=== PATIENT | female | born 1965 | race Caucasian/White ===

== ENCOUNTER 2018-01-25 23:52 | Inpatient (IN) | payer MEDICARE ==
[~2018-01-25] VITALS: Ht 149.9 cm; Wt 64.1 kg
--- NOTE | ~2018-01-25 | HEMODYNAMI ---
PATIENT:SUJIT GAY MEDICAL RECORD: [id number] : 63 LOCATION:[facility] ADMISSION DATE: 01/25/18 Generatedon:01/26/20181:36 Patient name: SUJIT GAY Patient #: [id number] SSN: : 1965 Date of study: 01/26/2018 Page: Of Hemodynamic Procedure Report Patient Data Patient Demographics Procedure consent was obtained First Name: SUJIT Gender: Female Last Name: DEIDRA : 1965 [facility] Initial: C Age: 52 year(s) Patient #: [id number] Race: Unknown Additional ID: [id number] Contact details [address]: [address] [place] [address] State: [place] City: [place] Zip code: [address] Past Medical History Allergies Allergen Reaction Date Comments Reported Other allergy 01/26/2018 DEET, NOVACAINE, DEMEROL, PCN Admission Admission Data Admission Date: 01/25/2018 Admission Time: 23:52 Procedure Procedure Types Cath Procedure Diagnostic Procedure C C w/Coronaries PCI Procedure AMI/SVG/INFORMATION CODER PTCA or Stent AMI-BMS/MATEO Initial Procedure Description Procedure Date Procedure Date: 01/26/2018 Procedure Start Time: 0:55 Procedure End Time: 1:35 Procedure Staff Name Function Inder Sparks RT Monitor Irlanda Petty RT Scrub Romi Otoole RN Nurse Jason Bowser MD Performing Physician Procedure Data Cath Procedure Fluoroscopy Diagnostic fluoroscopy Total fluoroscopy Time: 8.1 time: 8.1 min min Diagnostic fluoroscopy Total fluoroscopy dose: dose: 1107 mGy 1107 mGy Contrast Material Contrast Material Type Amount (ml) Isovue 300 118 Entry Location Entry Primary Successful Side Size Upsize Upsize Entry Closure Succes sful Closure Location (Fr) 1 (Fr) 2 (Fr) Remarks Device Remarks Femoral Right 6 Fr Exoseal artery Short Estimated blood loss: 10 ml Diagnostic catheters Device Type Used For End Catheter Placement MULTIPACK 3DRC 5Fr Procedure catheter MULTIPACK Pigtail 5 Fr Procedure catheter Procedure Complications No complications Procedure Medications Medication Administration Route Dosage Oxygen NRB 12 l/min Lidocaine 2% added to field 20 Heparin Flush Bag added to field 2 bags (1000units/500ml NS) 0.9% NaCl I.V. 100 ml/hr Versed I.V. 1 mg Heparin Bolus I.V. 5000 units Versed I.V. 1 mg Nitroglycerin IC/IA I.C. 100 mcg Hemodynamics Rest Heart Rate: 79 (bpm) Pressure Samples Time Site Value (mmHg) Purpose Heart Use Rate(bpm) 0:57 AO 195/108(146) Snapshot 82 1:05 AO 154/116(134) Snapshot 87 1:18 AO 173/106(138) Snapshot 83 1:21 LV 171/5,35 Snapshot 94 1:22 AO 175/100(136) Pullback 91 1:22 LV 179/5,33 Pullback 91 Gradients Valve Time Site 1 Site 2 Mean SEP/DFP Peak To Heart Use (mmHg) (sec/min) Peak Rate (mmHg) (bpm) Aortic 1:22 LV AO 9 4 4 91 179/5,33 175/100(136) Calculations Valve P-P Mean Valve Index Valve Source Name Gradient Area Flow (cm2) Aortic 4 9 4 9 Snapshots Pre Cath Intra NCS Post Cath Vital Signs Time Heart Resp SPO2 NIBP (mmHg) Rhythm Pain Sedation Rate (ipm) (%) Status Level (bpm) 0:52:25 72 17 98 Measuring NSR 0 (11) 10(A) , No pain 0:54:28 85 17 99 Time NSR 0 (11) 10(A) Exceeded , No pain 0:57:22 83 19 99 173/91(135) NSR 0 (11) 10(A) , No pain 1:02:07 88 13 97 173/106(132) NSR 0 (11) 10(A) , No pain 1:06:50 89 23 95 162/96(138) NSR 0 (11) 9(A) , No pain 1:11:28 84 22 94 103/62(87) NSR 0 (11) 9(A) , No pain 1:16:31 85 20 93 136/99(117) NSR 0 (11) 9(A) , No pain 1:21:47 94 20 95 134/96(126) NSR 0 (11) 10(A) , No pain 1:27:06 98 22 96 167/107(140) NSR 0 (11) 10(A) , No pain 1:31:53 101 22 96 177/104(129) NSR 0 (11) 10(A) , No pain Medications Time Medication Route Dose Verified Delivered Reason Notes Effectiveness by by 0:52:21 Oxygen NRB 12 Coy Buffie Per physician l/min Ronald Otoole RN, MD 0:52:28 Lidocaine 2% added 20ml Coy Coy for local to vial Ronald Cardenas MD anesthetic field MARTI 0:52:34 Heparin Flush added 2 Coy Coy used for Bag to bags Ronald Cardenas MD procedure (1000units/500ml field MARTI NS) 0:52:49 0.9% NaCl I.V. 100 Coy Buffie Per physician ml/hr Ronald Otoloe RN, MD 0:52:59 Versed I.V. 1 mg Coy Buffie for sedation Ronald Otoole RN, MD 0:59:03 Heparin Bolus I.V. 5000 Coy Buffie for verifie d units Ronald Otoole RN anticoagulation with dr MD bowser 1:04:57 Versed I.V. 1 mg Coy Buffie for sedation Ronald Otoole RN, MD 1:10:57 Nitroglycerin I.C. 100 Jason Buffie for IC/IA mcg Niels Otoole RN vasodilation Procedure Log Time Note 0:33:01 Inder Sparks RT(R) sent for patient. Start room use. 0:33:02 Time tracking: Call back (After hours or weekends) 0:33:06 Plan of Care:Hemodynamics will remain stable., Cardiac rhythm will remain stable., Comfort level will be maintained., Respiratory function will remain adequate., Patient/ family verbilizes understanding of procedure., Procedure tolerated without complication., Recovers from procedure without complications.. 0:33:11 H&P Date Dictated: 01/26/2018 ER History on chart.. 0:43:32 Patient allergic to Other allergyDEET, NOVACAINE, DEMEROL, PCN 0:43:38 Patient received from ED to CCL 1 Alert and oriented. Tansferred to table in Supine position. 0:43:39 Warm blankets applied, and efrain hugger turned on for patient comfort. 0:43:40 Correct patient and procedure confirmed by team. 0:43:41 Signed procedure consent form obtained from patient. 0:43:42 ECG and BP/O2 sat monitors applied to patient. 0:51:16 Vital chart was started 0:51:21 Baseline sample Acquired. 0:51:25 Rhythm: w/ ST elevation 0:51:26 Full Disclosure recording started 0:51:27 Pre-procedure instructions explained to patient. 0:51:27 Pre-op teaching completed and patient verbalized understanding. 0:51:28 Family in waiting room. 0:51:31 Patient NPO since Midnight. 0:51:33 Is the patient allergic to Iodine/contrast media? No. 0:51:35 Is patient on blood thinner?Yes 0:51:41 ACC The patient was administered the following blood thiners within the last 24 hours: ACCPlavix 0:51:56 Patient diabetic? No. 0:51:59 Previous problem with sedation/anesthesia? No ? 0:52:01 Snore? Yes 0:52:02 Sleep apnea? No 0:52:03 Deviated septum? No 0:52:04 Opens mouth fully? Yes 0:52:05 Sticks out tongue? Yes 0:52:07 Airway obstruction? No ? 0:52:21 Oxygen 12 l/min NRB was administered by Romi Otoole RN; Per physician; 0:52:24 Dentures? No ? 0:52:27 Pre procedure: right dorsailis pedis pulse 1+ Palpable, but thready & weak; easily obliterated 0:52:28 Lidocaine 2% 20ml vial added to field was administered by Coy Cardenas MD; for local anesthetic; 0:52:33 Patient pain scale 8/10 ?. 0:52:34 Heparin Flush Bag (1000units/500ml NS) 2 bags added to field was administered by Coy Cardenas MD; used for procedure; 0:52:38 IV patent on arrival in left forearm with 0.9% NaCl at O. 0:52:40 Lab results completed and on chart. 0:52:43 Right groin area was prepped with chlora-prep and draped in sterile fashion 0:52:44 Alarms reviewed by R. N. 0:52:44 Sharps counted by scrub and verified by R.N. 0:52:46 --------ALL STOP TIME OUT------ 0:52:46 Final Timeout: patient, procedure, and site verified with staff and physician. All members of the team are in agreement. 0:52:49 0.9% NaCl 100 ml/hr I.V. was administered by Romi Otoole RN; Per physician; 0:52:49 Right groin site verified by team. 0:52:59 Versed 1 mg I.V. was administered by Romi Otoole RN; for sedation; 0:53:19 Physical assessment completed. ASA score P 3 - A patient with severe systemic disease as per Jason Bowser MD. 0:53:22 Sedation plan: IV Moderate Sedation Medication:Versed, Fentanyl 0:55:23 Procedure started. 0:55:26 Local anesthetic to right femoral artery with Lidocaine 2% by Jason Bowser MD.INITIAL ACCESS ONLY 0:55:30 Use device set Femoral Dx 0:55:31 Tegaderm 4 x 4 (1626W) opened to sterile field. 0:55:32 PERCUTANEOUS ENTRY 19GA needle opened to sterile field. 0:55:33 ACIST Manifold (83519) opened to sterile field. 0:55:34 ACIST Hand Control (72693) opened to sterile field. 0:55:35 ACIST Syringe (10037) opened to sterile field. 0:55:35 Bag Decanter (2002S) opened to sterile field. 0:55:36 Medline Cath Pack ([id number]) opened to sterile field. 0:55:36 DIAGNOSTIC WIRE .035 260cm J wire (032237) opened to sterile field. 0:55:37 DIAGNOSTIC Multipack 5Fr catheter set (QD9020) opened to sterile field. 0:55:45 Use device set BOWSER PCI 0:55:47 SHEATH Prelude 6Fr 0.035 (IND-4R-10-035) opened to sterile field. 0:55:49 GUIDE 6FR XBLAD 3.5 catheter ([id number]) opened to sterile field. 0:56:01 BMW 300cm Huntington 2 J wire ([id number]) opened to sterile field. 0:56:02 INFLATOR Merit BasixCompak (XB0858) opened to sterile field. 0:56:03 TUBING High Pressure Extension Tubing (Niels) (YV5353F) opened to sterile field. 0:57:01 A 6 Fr Short sheath was inserted into the Right Femoral artery 0:57:14 6 Fr XBLAD 3.5 guide catheter was inserted over the wire 0:58:10 LCA angiography performed. 0:59:03 Heparin Bolus 5000 units I.V. was administered by Romi Otoole RN; for anticoagulation; verified with dr bowser 0:59:50 BMW wire advanced. 1:00:33 Wire advanced across lesion. 1:01:47 Inflate balloon Inflation number: 1 A EMERGE OTW 2.5 x 15 balloon ([id number]) was prepped and advanced across the Mid LAD, then inflated to 10 ROMEO for 0:10 (min:sec). 1:04:24 Balloon removed over the wire. 1:04:57 Versed 1 mg I.V. was administered by Romi Otoole RN; for sedation; 1:06:59 Place stent Inflation Number: 2 A INTEGRITY OTW 3.0 X 30 stent ([id number]) was prepped and advanced across the Mid LAD. The stent was deployed at 13 ROMEO for 0:10 (min:sec). 1:10:57 Nitroglycerin IC/IA 100 mcg I.C. was administered by Romi Otoole RN; for vasodilation; 1:13:31 Stent catheter was removed intact over wire. 1:16:47 Place stent Inflation Number: 3 A INTEGRITY OTW 2.75 X 8 stent ([id number]) was prepped and advanced across the Mid LAD. The stent was deployed at 12 ROMEO for 0:10 (min:sec). 1:17:07 Stent catheter was removed intact over wire. 1:17:08 Wire removed. 1:17:09 Guide catheter removed. 1:17:22 A MULTIPACK 3DRC 5Fr catheter was advanced over the wire and used for Procedure. 1:19:36 RCA angiography performed. 1:19:50 Catheter exchanged over wire. 1:19:57 A MULTIPACK Pigtail 5 Fr catheter was advanced over the wire and used for Procedure. 1:21:46 LV angiography performed. 1:21:47 LV gram done using ALVARADO 1:21:53 EF : 30 % 1:22:18 LV hemodynamics recorded. 1:22:21 Injector settings: Ml/sec: 10, Volume: 20, 1:22:28 Catheter removed. 1:22:43 EXOSEAL 6Fr (EX600) opened to sterile field. 1:22:59 Sheath removed intact; hemostasis achieved with Exoseal to the Right Femoral artery. 1:23:02 Procedure ended.(Physican Out) 1:23:14 Fluoroscopy time 08.10 minutes. 1:23:18 Fluoroscopy dose: 1107 mGy 1:23:18 Flurop Dose total: 1107 1:23:22 Contrast amount:Isovue 300 118ml. 1:23:24 Sharps counted by scrub and verified by R.N. 1:23:25 Insertion/operative site no bleeding no hematoma. 1:23:28 Post-op/insertion site Right Femoral artery dressed using a 4 x 4 and Tegaderm. 1:23:29 Post Procedure Pulses reassessed and unchanged 1:23:38 Post-procedure physical assessment completed. ASA score P 3 - A patient with severe systemic disease as per Jason Bowser MD. 1:23:41 Post procedure rhythm: sinus rhythm 1:23:51 Estimated blood loss: 10 ml 1:24:41 Post procedure instruction explained to patient.Patient verbalizes understanding. 1:24:42 Patient needs reinforcement of post procedure teaching. 1:25:20 Procedure type changed to Cath procedure, Diagnostic procedure, LHC, LHC w/Coronaries, PCI procedure, AMI/SVG/INFORMATION CODER PTCA or Stent, AMI-BMS/MATEO Initial 1:25:22 Procedure and supply charges have been captured, reviewed, submitted and are correct. 1:25:25 Procedure Complication : No complications 1:33:07 Pt began to develop a right groin hematoma. Femstop applied at 200. 1:33:13 FEMSTOP Gold (P52803) opened to sterile field. 1:35:45 Vital chart was stopped 1:35:46 See physician's report for complete and final results. 1:35:49 Report given to CVICU. 1:35:53 Patient transfered to CVICU with Bed. 1:35:55 Procedure ended. 1:35:55 Full Disclosure recording stopped 1:36:07 End room use (Document Last) Intervention Summary Intervention Notes Time ActionType Lesion and Equipment Action# Pressure Duration Attributes Used 1:01:47 Inflate Mid LAD EMERGE OTW 1 10 00:10 balloon 2.5 x 15 balloon ([id number]) 1:06:59 Place stent Mid LAD INTEGRITY 2 13 00:10 OTW 3.0 X 30 stent ([id number]) 1:16:47 Place stent Mid LAD INTEGRITY 3 12 00:10 OTW 2.75 X 8 stent ([id number]) Device Usage Item Name Manufacture Quantity Catalog Number Hospital Part Current Minimal Lot# / Charge Number Stock Stock Serial# Code Tegaderm 4 x 4 3M 1 [id number] [id number] [id number] 115357 5 (1626W) PERCUTANEOUS Cook Medical 1 [id number] 555177 415537 5 ENTRY 19GA needle ACIST Manifold Acist 1 46393 241307 739246 853695 5 (93922) Medical Systems Inc ACIST Hand Acist 1 68488 335979 347864 191061 5 Control (95228) Medical Systems Anadys ACIST Syringe Acist 1 83542 461210 428125 663305 20 (82467) Medical Systems Inc Bag Decanter Microtek 1 2001S 694087 32334 434360 5 (2001S) Medical Inc. Medline Cath Cardinal 1 [id number] 663478 88572 716946 5 Pack Health (ECSA09062) DIAGNOSTIC WIRE St Talat 1 382370 511713 345114 121454 30 .035 260cm J wire (986265) DIAGNOSTIC Cardinal 1 PE4776 498934 95476 092642 30 Multipack 5Fr Health catheter set (VP0098) SHEATH Prelude Merit 1 JAL-5H-82-35 905988 3802619 678550 5 6Fr 0.035 Medical (IQT-3H-29-035) GUIDE 6FR XBLAD Cardinal 1 [id number] 428653 562370 423649 10 3.5 catheter Next audience (49013130) BMW 300cm Gordon 1 1231043E 719592 000429 882449 5 Huntington 2 J Vascular wire (7299081T) INFLATOR Merit Merit 1 AL2287 086942 010781 651716 15 BasixCompak Medical (SI2480) TUBING High Merit 1 DM6856J 169242 77308 933206 10 Pressure Medical Extension Tubing (Bowser) (NE1650S) EMERGE OTW 2.5 Converse 1 [id number] 314241 216351 852008 5 x 15 balloon Scientific ([id number]) INTEGRITY OTW Medtronic 1 [id number] 290227 841103 7 [id number] 3.0 X 30 stent ([id number]) INTEGRITY OTW Medtronic 1 [id number] 718784 454571 1 2.75 X 8 stent ([id number]) MULTIPACK 3DRC Cardinal 1 223661 5 5Fr catheter Health MULTIPACK Cardinal 1 364882 5 Pigtail 5 Fr Health catheter EXOSEAL 6Fr Cardinal 1 EX600 482335 938670 683107 10 (EX600) Health FEMSTOP Gold St Talat 1 D21445 225397 117108 436812 5 (A85222) Signature Audit Julian Stage Time Signature Unsigned Intra-Procedure 01/26/2018 Inder Sparks 1:36:37 AM RT(R) Signatures Monitor : Inder Sparks RT Signature : Date : Time : [address] [address]
--- NOTE | ~2018-01-25 | EC ---
PATIENT:SUJIT GAY DATE OF SERVICE: 01/26/18 SEX: F MEDICAL RECORD: [id number] DATE OF : 63 LOCATION:[place] [address] AGE OF PATIENT: 52 ADMISSION DATE: 01/26/18 REFERRING PHYSICIAN: INTERPRETING PHYSICIAN: JULIA STARKS MD ECHOCARDIOGRAM REPORT ECHO CHARGES 4 ECHO COMPLETE Date: 01/26 CLINICAL DIAGNOSIS: ACUTE [place] ECHOCARDIOGRAPHIC MEASUREMENTS (adult normal given) AC root (d.<3.7cm) 2.5 cm LV Septum d (<1.2 cm> 0.9 cm Valve Excursion 1.2 cm LV Septum (systole) 1.0 cm Left Atria (s.<4.0cm> 2.8 cm LVPW d(<1.2cm) 0.9 cm RV (d.<2.3cm) 2.8 cm LVPW (sytole) 1.2 cm LV diastole(<5.6CM) 4.9 cm MV E-F(>70mm/sec) cm LV systole 3.6 cm LVOT Diameter 1.4 cm MV exc.(>10mm) 1.2 cm Est.ejection fraction (50-75%) % DOPPLER: LVIT cm/sec A 84.0 cm/sec E 56.0 cm/sec LA cm/sec RVSP 17 mmHg LVOT 125 cm/sec AOP1/2T m/s Asc. Ao 152 cm/sec RVOT cm/sec RA cm/sec PA cm/sec AV Gradient Peak 9.20 mmHg AV Mean 5.11 mmHg AV Area 1.2 cm MV Gradient Peak 4.37 mmHg MV Mean 1.73 mmHg MV Area cm COMMENTS: Hospice Clinical Marketer: Janis WALLACE Fuller Brush Man: 2 Dr. Bowser TAPE# PACS Pericardial Effusion N DATE OF SERVICE: 01/26/2018 PROCEDURE: Echocardiogram. FINDINGS: 1. Left ventricular chamber size is within normal limits. Left ventricular systolic function is preserved at 50%. There is apical and septal hypokinesis. 2. Left atrium is within normal limits at 2.8 cm. Right atrium and right ventricle chamber sizes are mildly dilated. 3. Valvular structures have normal structure and motion. ECHOCARDIOGRAM REPORT [id number] SUJIT GAY 4. Doppler interrogation reveals no significant valvular insufficiency or stenosis. 5. No evidence of pericardial effusion or left ventricular thrombus. TRANSINT:[id number] Voice Confirmation ID: [id number] DOCUMENT ID: [id number] JULIA STARKS MD at 2002 CC: [id number] DICTATION DATE: 01/26/18 1337 TUBE WORKER: 01/26/18 1357 ADM IN [facility] [address] [place] [address]
--- NOTE | ~2018-01-25 | DS ---
PATIENT:SUJIT GAY :63 MEDICAL RECORD: [id number] DISCHARGE SUMMARY ADMISSION DATE: 01/26/18 DISCHARGE DATE: 01/28/18 DISCHARGE DIAGNOSES: 1. Acute anterior myocardial infarction. 2. PTCA stent LAD. 3. Coronary artery disease. 4. Hypertension. 5. Hyperlipidemia. HOSPITAL COURSE: Mrs. Gay presents with acute anterior myocardial infarction, underwent successful PTCA stent of the LAD, was discharged home with the addition of aspirin, Plavix, Pravachol, Coreg, and lisinopril to her medical regimen. Follow up with [facility] in 1 month. TRANSINT:[id number] Voice Confirmation ID: [id number] DOCUMENT ID: [id number] JULIA STARKS MD at 1741 CC: [id number] DICTATION DATE: 01/28/18 1001 VP BUSINESS DEVELOPMENT: 01/28/18 1735 DIS IN 01/28/18 [place] [address] [place] [address]
[2018-01-25] MEDS ORDERED: ZESTRIL40 MG PO (23:57)
[2018-01-25] MEDS ORDERED: MOBIC7.5 MG PO (23:57)
[2018-01-25] MEDS ORDERED: PERCOCET 10/3251 TA1 PO (23:58)
[2018-01-25] MEDS ORDERED: TRAZODONE HCL50 MG PO (23:58)
[2018-01-26] VITALS (65 sets, daily range): BP systolic 90–168; BP diastolic 40–115; Ht 149.9 cm; Wt 64.1 kg
[2018-01-26 00:06] LABS: BASOPHILS 0.2 % (0-2); EOSINOPHILS 2.6 % (0-7); HEMATOCRIT 39.6 % (36.0-48.0); HEMOGLOBIN 13.7 g/dL (12-16); IMMATURE GRANULOCYTES 0.2 % (0-5); LYMPHOCYTES 47.6 % (15-50); MCHC 34.6 g/dL (31.0-37.0); MCV 83.9 fL (80.0-100.0); MEAN PLATELET VOLUME 10.4 fL (7.4-10.4); MONOCYTES 9.5 % (2-11); NEUTROPHILS 39.9 % (40-80); PLATELET COUNT 222 10x3/uL (130-400); RBC 4.72 10x6/uL (4.00-5.40); WBC 12.7 10x3/uL (4.8-10.8)
[2018-01-26 00:25] LABS: APTT 27.4 SECONDS (22.8-39.4); INR 0.96 (0.85-1.17); PROTIME 12.3 SECONDS (11.6-15.0)
[2018-01-26 00:37] LABS: ALBUMIN 3.8 g/dL (3.4-5.0); ALKALINE PHOSPHATASE 96 U/L (46-116); ALT (SGPT) 20 U/L (10-68); BILIRUBIN - TOTAL 0.17 mg/dL (0.2-1.3); CALC OSMOLALITY 283 mosm/kg (275-300); CALCIUM 9.1 mg/dL (8.5-10.1); CARBON DIOXIDE 20.7 mmol/L (21.0-32.0); CHLORIDE - SERUM 106 mmol/L (98-107); CREATININE - SERUM 0.8 mg/dL (0.6-1.3); POTASSIUM - SERUM 3.2 mmol/L (3.5-5.1); PROTEIN - SERUM 7.6 g/dL (6.4-8.2); SODIUM 141 mmol/L (136-145); UREA NITROGEN 14 mg/dL (7-18); eGFR NON AFRICAN AMERICAN 79 mL/min (90-120)
[2018-01-26 00:39] LABS: GLUCOSE 143 mg/dL (74-106)
[2018-01-26 00:54] LABS: CKMB 1.5 U/L (0.0-3.6); CREATINE KINASE 54 UL (21-215); PRO BNP 47 pg/mL (0-125); TROPONIN-I 0.144 ng/mL (0.000-0.060)
[2018-01-26 12:26] LABS: BASOPHILS 0.1 % (0-2); EOSINOPHILS 0.3 % (0-7); HEMATOCRIT 40.3 % (36.0-48.0); HEMOGLOBIN 13.5 g/dL (12-16); IMMATURE GRANULOCYTES 0.3 % (0-5); LYMPHOCYTES 12.3 % (15-50); MCH 28.9 pg (26.0-34.0); MCHC 33.5 g/dL (31.0-37.0); MCV 86.3 fL (80.0-100.0); MEAN PLATELET VOLUME 10.6 fL (7.4-10.4); MONOCYTES 6.9 % (2-11); NEUTROPHILS 80.1 % (40-80); PLATELET COUNT 219 10x3/uL (130-400); RBC 4.67 10x6/uL (4.00-5.40); RDW 13.4 % (11.5-14.5); WBC 17.7 10x3/uL (4.8-10.8)
[2018-01-26 13:39] LABS: CREATINE KINASE 4545 UL (21-215)
[2018-01-26 13:40] LABS: CKMB 799.9 U/L (0.0-3.6)
[2018-01-26 14:35] LABS: CREATININE - SERUM 0.8 mg/dL (0.6-1.3); GLUCOSE 105 mg/dL (74-106); UREA NITROGEN 13 mg/dL (7-18); eGFR NON AFRICAN AMERICAN 79 mL/min (90-120)
[2018-01-26 14:36] LABS: CALC OSMOLALITY 278 mosm/kg (275-300); CALCIUM 8.9 mg/dL (8.5-10.1); CARBON DIOXIDE 26.3 mmol/L (21.0-32.0); CHLORIDE - SERUM 107 mmol/L (98-107); CKMB 1095.6 U/L (0.0-3.6); CREATINE KINASE 5963 UL (21-215); POTASSIUM - SERUM 4.5 mmol/L (3.5-5.1); SODIUM 140 mmol/L (136-145)
[2018-01-26 19:18] LABS: CKMB 403.3 U/L (0.0-3.6); CREATINE KINASE 2947 UL (21-215)
[2018-01-26 19:19] LABS: TROPONIN-I 66.455 ng/mL (0.000-0.060)
[2018-01-27] VITALS (54 sets, daily range): BP systolic 88–168; BP diastolic 37–99
[2018-01-27 06:47] LABS: CALC OSMOLALITY 281 mosm/kg (275-300); CALCIUM 8.6 mg/dL (8.5-10.1); CARBON DIOXIDE 24.6 mmol/L (21.0-32.0); CHLORIDE - SERUM 106 mmol/L (98-107); CKMB 146.1 U/L (0.0-3.6); CREATININE - SERUM 0.7 mg/dL (0.6-1.3); GLUCOSE 120 mg/dL (74-106); POTASSIUM - SERUM 4.2 mmol/L (3.5-5.1); SODIUM 141 mmol/L (136-145); UREA NITROGEN 13 mg/dL (7-18); eGFR NON AFRICAN AMERICAN > 90 mL/min (90-120)
[2018-01-27 06:53] LABS: CREATINE KINASE 1279 UL (21-215); TROPONIN-I 44.125 ng/mL (0.000-0.060)
[2018-01-28] VITALS: BP 115/78
[2018-01-28 04:00] VITALS: BP 135/62
[2018-01-28 08:41] VITALS: BP 139/77
== END 2018-01-28 13:25 | disposition home or self-care (01) | DRG 249 ==
LOC: D.ER 23:52 → D.CVICU 01-26 01:33 → D.M2 01-27 23:00
PROVIDERS: Family Medicine; Internal Medicine Cardiovascular Disease
PROC: B2111ZZ Fluoroscopy of Multiple Coronary Arteries using Low Osmolar Contrast (ICD-10-PCS; 2018-01-26)
PROC: B2151ZZ Fluoroscopy of Left Heart using Low Osmolar Contrast (ICD-10-PCS; 2018-01-26)
PROC: 02703EZ Dilation of Coronary Artery, One Artery with Two Intraluminal Devices, Percutaneous Approach (ICD-10-PCS; principal; 2018-01-26 00:33)
PROC: 4A023N7 Measurement of Cardiac Sampling and Pressure, Left Heart, Percutaneous Approach (ICD-10-PCS; 2018-01-26 00:33)
DX: I21.09 ST elevation (STEMI) myocardial infarction involving other coronary artery of anterior wall (principal); I31.9 Disease of pericardium, unspecified; I25.10 Atherosclerotic heart disease of native coronary artery without angina pectoris; E78.5 Hyperlipidemia, unspecified; I10 Essential (primary) hypertension; M06.9 Rheumatoid arthritis, unspecified